=== PATIENT | male | born 1935 | race Caucasian/White ===

== ENCOUNTER 2016-09-11 07:10 | Day surgery (SDC) | payer MEDICARE, BC ==
[2016-09-11] MEDS ORDERED: Lactated Ringers 1,000 ML IV SCH (07:15)
[2016-09-11] MEDS ORDERED: Propofol 200 MG/20 ML SDV IV ONE (08:30)
[2016-09-11] MEDS ORDERED: Midazolam 1 MG/ML 2 ML SDV IV ONE (08:30)
--- NOTE | 2016-09-11 08:58 | PCM.OPNOTE ---
- General Post-Op/Procedure Note Date of Surgery/Procedure: 09/11/16 Operative Procedure(s): c scope Findings: normal colon Pre Op Diagnosis: change in stool caliber Post-Op Diagnosis: normal scope Anesthesia Technique: MAC Primary Surgeon: Caesar Ha Anesthesia Provider: Julia Vo Pathology: none Complications: None Condition: Good Free Text/Narrative:: see dictation
[2016-09-11 10:18] VITALS: BP 135/80
--- NOTE | 2016-09-11 12:37 | OR ---
DATE OF OPERATION: 09/11/2016 SURGEON: Caesar Ha MD PROCEDURE PERFORMED: Colonoscopy. PREOPERATIVE DIAGNOSIS: Change in stool caliber. POSTOPERATIVE DIAGNOSIS: Normal colon. INDICATIONS FOR PROCEDURE: This is a 80-year-old white male who was referred with the above-mentioned complaint of change in stool caliber. He was offered and accepted colonoscopy. DESCRIPTION OF PROCEDURE: After an excellent IV sedation was administered, digital rectal exam was performed. No marked abnormality was noted. The flexible colonoscope was inserted and advanced to the cecum without difficulty. The following findings were noted. The prep was excellent. Ascending colon, unremarkable. Transverse colon, unremarkable. Descending colon, unremarkable. Sigmoid and rectum, unremarkable. Colon was deflated as the scope was removed. The patient tolerated the procedure well. I am going to recommend a high-fiber diet to the patient to see if that does not affect his stool caliber. /[id number] /RIVERAL
== END 2016-09-11 10:05 | disposition home or self-care (01) ==
LOC: FB.SDS 07:10
PROVIDERS: ATTEND Surgery
DX: R19.5 Other fecal abnormalities (principal); I10 Essential (primary) hypertension; F32.9 Major depressive disorder, single episode, unspecified; Z79.899 Other long term (current) drug therapy; Z98.890 Other specified postprocedural states; Z98.52 Vasectomy status; Z87.891 Personal history of nicotine dependence
CPT/HCPCS: 00810; 45378; J2250; J2704; J7120

== ENCOUNTER 2020-07-13 16:12 | Inpatient (IN) | payer MEDICARE, BC ==
[2020-07-13] MEDS ORDERED: Furosemide 40 MG/4 ML VIAL IVPUSH ONE (16:55)
[2020-07-13] MEDS ORDERED: Nitroglycerin 0.4 MG Tab.SL SL PRN (16:56)
[2020-07-13] MEDS ORDERED: Acetaminophen 500 MG Tab PO PRN (16:56)
[2020-07-13] MEDS ORDERED: LORazepam 0.5 MG Tab PO PRN (16:56)
--- NOTE | 2020-07-13 17:07 | PCM.HP.2 ---
H&P History of Present Illness - General Date of Service: 07/13/20 Admit Problem/Dx: Admission Diagnosis/Problem Admission Diagnosis/Problem Hematuria Source of Information: Patient, Provider (Jenny Kirby) History Limitations: Reports: No Limitations - History of Present Illness Initial Comments - Free Text/Narative: Pedro presented to [facility] today for worsening hematuria, urinary retention. He had seen Dr Grant, his PCP on Friday as he had started having dysuria on Friday evening, increased hematuria. He was started on Ciprofloxacin 500 mg bid for 7 days. He had large bloody incontinent urine evening. He states he has urge to urinate, goes to sit down but only a little bit leaks out. He states he has been passing clots of blood. He did have 1 episode of vomiting today after he ate at [employer], stated the cabbage tasted funny, vomited about an hour after he ate, no nausea now. In the clinic, Jenny Kirby, [employer] did CBC which showed Hgb of 6.8. BMP: Na 125, Cl 94, Cr 1.65. Last Hgb was 10.2, last creatinine was 1.04. UA in clinic was too bloody to test for anything else. Blood pressure was 90/40, Pulse 106. Pale. No lightheadedness or dizziness. History of bladder cancer 18 yrs ago, on Lupron, sees Dr Crum every 6 months. He denies any fevers, chills, cough, chest pain. He has shortness of breath but states this is not new. Constipated, no diarrhea. Lower abdominal pain, describes as pressure. No rash. No easily bleeding or bruising. He had his last Covid vaccination on 06/21/2020, no previous history of Covid infection in the last 3 months. Had influenza vaccination 01/2020. - Related Data Allergies/Adverse Reactions: Allergies Allergy/AdvReac Type Severity Reaction Status Date / Time No Known Allergies Allergy Verified 09/11/16 07:22 Home Medications: Home Meds Acetaminophen 1,000 mg PO Q6H PRN 09/10/16 [History] LORazepam [Ativan] 0.5 mg PO BID PRN 09/10/16 [History] Nitroglycerin [Nitrostat] 0.4 mg SL Q5M PRN 09/10/16 [History] Sertraline [Zoloft] 50 mg PO DAILY 09/10/16 [History] Terazosin [Hytrin] 5 mg PO DAILY 09/10/16 [History] Acetaminophen/Diphenhydramine [Tylenol Pm Ex-Strength Caplet] 2 each PO BEDTIME 07/13/20 [History] Aspirin [Halfprin] 81 mg PO DAILY 07/13/20 [History] Ciprofloxacin HCl [Cipro] 500 mg PO BID 07/13/20 [History] Ferrous Sulfate 325 mg PO DAILY 07/13/20 [History] Gabapentin [Neurontin] 300 mg PO TID 07/13/20 [History] Leuprolide Acetate [Lupron Depot] 45 mg SUBCUT ASDIRECTED 07/13/20 [History] Past Medical History Cardiovascular History: Reports: Heart Murmur, High Cholesterol, Hypertension Gastrointestinal History: Reports: Diverticulosis Genitourinary History: Reports: Hydronephrosis, Other (See Below) (bladder stone) Other Genitourinary History: radiation cystitis PLATFORM STAP[employer]ER History: Reports: None Musculoskeletal History: Reports: Back Pain, Chronic Neurological History: Reports: Headaches, Chronic, Other (See Below) Other Neuro History: TMJ (TEMPOROMANDIBULAR JOINT SYNDROME) Psychiatric History: Reports: Depression Hematologic History: Reports: Iron Deficiency Oncologic (Cancer) History: Reports: Bladder, Prostate - Infectious Disease History Infectious Disease History: Reports: Chicken Pox, Measles, Mumps - Past Surgical History HEENT Surgical History: Reports: Adenoidectomy, Tonsillectomy GI Surgical History: Reports: Colonoscopy Male Surgical History: Reports: TURP-Transurethral Resection of Prostate, Ureteral Stent, Vasectomy, Other (See Below) Other Male Surgeries/Procedures: CYSTOSCOPY; URETEROSCOPYW/ STONE MANIPULATION ET RETROGRADE Social & Family History - Caffeine Use Caffeine Use: Reports: Coffee H&P Review of Systems - Review of Systems: Review Of Systems: Comprehensive ROS is negative, except as noted in HPI. Exam - Exam Exam: See Below - Exam General: Alert, Oriented, Cooperative. No: Mild Distress HEENT: PERRLA, Conjunctiva Clear, EOMI, Hearing Intact, Posterior Pharynx Clear, Glasses, Other (Mucosa moist & pale, conjuctival mucosa pale) Neck: Supple, Trachea Midline. No: Lymphadenopathy Lungs: Clear to Auscultation, Normal Respiratory Effort Cardiovascular: Regular Rate, Regular Rhythm, Systolic Murmur (aortic area,) GI/Abdominal Exam: Normal Bowel Sounds, Soft, Distended (suprapubic), Guarding, Tender (suprapubic). No: Rigid, Rebound (Male) Exam: Deferred Rectal (Males) Exam: Deferred Extremities: No Pedal Edema, Slow Capillary Refill, Pallor Peripheral Pulses: 2+: Radial (L), Radial (R) Skin: Warm, Dry, Intact, Other (pallor) Neurological: Cranial Nerves Intact, Normal Speech, Normal Tone Psychiatric: Normal Affect, Normal Mood *Q Meaningful Use (ADM) - VTE *Q VTE Pharmacological Contraindications *Q: Active Hemorrhage VTE Anticoagulation Contraindications: Med/TX Not Indicated/Need - VTE Risk Assess *Q Each Risk Factor Represents 1 Point: None Total Score 1 Point Risk Factors: 0 Each Risk Factor Represents 3 Points: Age 75 Years or Greater Total Score 3 Point Risk Factors: 3 Each Risk Factor Represents 5 Points: None Total Score 5 Point Risk Factors: 0 - Problem List (1) Anemia associated with acute blood loss SNOMED Code(s): 220079001 ICD Code: D62 - ACUTE POSTHEMORRHAGIC ANEMIA Status: Acute Current Visit: Yes Problem Details: Hgb 6.8, blood pressure in clinic 90/40. (2) UTI (urinary tract infection) SNOMED Code(s): 34041271 ICD Code: N39.0 - URINARY TRACT INFECTION, SITE NOT SPECIFIED Status: Acute Current Visit: Yes Qualifiers: Urinary tract infection type: acute cystitis Hematuria presence: with hematuria Qualified Code(s): N30.01 - Acute cystitis with hematuria (3) Hematuria, gross SNOMED Code(s): 546124746 ICD Code: R31.0 - GROSS HEMATURIA Status: Acute Current Visit: Yes (4) Hypotension SNOMED Code(s): 29398371 ICD Code: I95.9 - HYPOTENSION, UNSPECIFIED Status: Acute Current Visit: Yes (5) Acute kidney injury SNOMED Code(s): 36954994, 13805918 ICD Code: N17.9 - ACUTE KIDNEY FAILURE, UNSPECIFIED Status: Acute Current Visit: Yes Problem Details: Cr 1.65, baseline 1.0 (6) Dehydration SNOMED Code(s): 08024074 ICD Code: E86.0 - DEHYDRATION Status: Acute Current Visit: Yes (7) Hyponatremia SNOMED Code(s): 91549376 ICD Code: E87.1 - HYPO-OSMOLALITY AND HYPONATREMIA Status: Acute Current Visit: Yes Problem Details: Na 125 in clinic. (8) Iron deficiency anemia SNOMED Code(s): 66516425 ICD Code: D50.9 - IRON DEFICIENCY ANEMIA, UNSPECIFIED Status: Chronic Current Visit: Yes (9) History of prostate cancer SNOMED Code(s): 014795781 ICD Code: Z85.46 - PERSONAL HISTORY OF MALIGNANT NEOPLASM OF PROSTATE Status: Chronic Current Visit: Yes Onset Date: ~2002 (10) Radiation cystitis SNOMED Code(s): 09446808 ICD Code: N30.40 - IRRADIATION CYSTITIS WITHOUT HEMATURIA Status: Chronic Current Visit: Yes (11) Diverticula of colon SNOMED Code(s): 713934513, 821081137 ICD Code: K57.30 - DVRTCLOS OF LG INT W/O PERFORATION OR ABSCESS W/O BLEEDING Status: Chronic Current Visit: Yes (12) Depression, major, in remission SNOMED Code(s): 50603219 ICD Code: F32.5 - MAJOR DEPRESSIVE DISORDER, SINGLE EPISODE, IN FULL REMISSION Status: Chronic Current Visit: Yes (13) History of bladder stone SNOMED Code(s): 541985058 ICD Code: Z87.448 - PERSONAL HISTORY OF OTHER DISEASES OF URINARY SYSTEM Status: Chronic Current Visit: Yes (14) History of bladder cancer SNOMED Code(s): 640746444, 900061599 ICD Code: Z85.51 - PERSONAL HISTORY OF MALIGNANT NEOPLASM OF BLADDER Statu s: Chronic Current Visit: Yes (15) Chronic bilateral back pain SNOMED Code(s): 573705108 ICD Code: M54.9 - DORSALGIA, UNSPECIFIED; G89.29 - OTHER CHRONIC PAIN Status: Chronic Current Visit: Yes (16) TMJ syndrome SNOMED Code(s): 349243693 ICD Code: M26.629 - ARTHRALGIA OF TEMPOROMANDIBULAR JOINT, UNSPECIFIED SIDE Status: Chronic Current Visit: Yes Problem List Initiated/Reviewed/Updated: Yes Orders Last 24hrs: Active Orders 24 hr Category Date Time Status Patient Status [ADT] Routine ADT 07/13/20 16:48 Ordered Ambulate [RC] PER UNIT ROUTINE Care 07/13/20 16:50 Ordered Height and Weight [RC] UPON Care 07/13/20 16:47 Ordered Insert Urinary Catheter [OM.PC] Q24H Care 07/13/20 17:00 Ordered Oxygen Therapy [RC] PRN Care 07/13/20 16:48 Ordered Up ad Cassandra [RC] ASDIRECTED Care 07/13/20 16:47 Ordered Urinary Catheter Assessment [RC] QSHIFT Care 07/13/20 16:47 Ordered VTE/DVT Education [RC] Per Unit Routine Care 07/13/20 16:48 Ordered Vital Signs [RC] Q4H Care 07/13/20 16:48 Ordered Regular Diet [DIET] Diet 07/13/20 Dinner Ordered BASIC METABOLIC PANEL,BMP [CHEM] Routine Lab 07/14/20 06:00 Ordered CBC WITH AUTO DIFF [HEME] Routine Lab 07/14/20 06:00 Ordered RED BLOOD CELLS LP [BBK] Routine Lab 07/13/20 16:47 Ordered TYPE AND SCREEN [BBK] Routine Lab 07/13/20 16:47 Ordered Acetaminophen [Tylenol Extra Strength] Med 07/13/20 16:56 Ordered 1,000 mg PO Q6H PRN Ciprofloxacin [Ciprofloxacin HCl] Med 07/13/20 21:00 Ordered 500 mg PO BID Ferrous Sulfate Med 07/14/20 09:00 Ordered 325 mg PO DAILY Gabapentin [Neurontin] Med 07/13/20 21:00 Ordered 300 mg PO TID LORazepam [Ativan] Med 07/13/20 16:56 Ordered 0.5 mg PO BID PRN Nitroglycerin [Nitrostat] Med 07/13/20 16:56 Ordered 0.4 mg SL Q5M PRN Sertraline [Zoloft] Med 07/14/20 09:00 Ordered 50 mg PO DAILY Sodium Chloride 0.9% [Normal Saline] 250 ml Med 07/13/20 17:00 Ordered IV ASDIRECTED Sodium Chloride 0.9% [Saline Flush] Med 07/13/20 16:47 Ordered 10 ml FLUSH ASDIRECTED PRN Anticoagulation Contraindications VTE [AST] Per Unit Oth 07/13/20 16:47 Ordered Routine Antiembolic Hose [OM.PC] Per Unit Routine Oth 07/13/20 16:51 Ordered Peripheral IV Insertion Adult [OM.PC] Routine Oth 07/13/20 16:47 Ordered Transfuse Red Blood Cells [COMM] Routine Oth 07/13/20 16:47 Ordered VTE Pharmacological Contraindications [AST] Per Unit Oth 07/13/20 16:47 Ordered Routine Resuscitation Status Routine Resus Stat 07/13/20 16:47 Ordered Medication Orders Acetaminophen (Acetaminophen 500 Mg Tab) 1,000 mg PO Q6H PRN PRN Reason: Pain/Fever Ciprofloxacin (Ciprofloxacin 500 Mg Tab) 500 mg PO BID DENZEL Stop: 07/18/20 21:01 Ferrous Sulfate (Ferrous Sulfate 325 Mg Tab) 325 mg PO DAILY DENZEL Gabapentin (Gabapentin 300 Mg Cap) 300 mg PO TID DENZEL Sodium Chloride (Normal Saline) 250 mls @ 100 mls/hr IV ASDIRECTED DENZEL Sodium Chloride (Sodium Chloride 0.9% 10 Ml Syringe) 10 ml FLUSH ASDIRECTED PRN PRN Reason: Keep Vein Open Assessment/Plan Comment:: 1. Direct admission for gross hematuria, anemia secondary to acute blood loss, hypotension, dehydration. 2. Anemia: Hgb 6.8 in clinic, type & cross 2 units of PRBCs, Lasix 40 mg IV between units. Repeat CBC in am. 3. Hematuria/UTI/acute urinary retention: bladder scan >542 ml, Velázquez insert, 3 way for irrigation, irrigate until urine clear. Continue Ciprofloxacin 500 mg po bid x 5 more days, completed 2 days as outpatient. 4. Hypotension 2/2 to blood loss/dehydration: Hold Terazosin. Transfuse 2 units. If still hypotensive after transfusion complete then would start IVF. 5. Dehydration/hyponatremia: Na 125 in clinic, will transfuse blood first then start IVF, repeat BMP in am. 6. BASILIO: Cr 1.65 in clinic, transfuse & then IVF, repeat BMP in morning. 7. Diet: regular. 8. Activity: as tolerated. 9. DVT prophylaxis: anticoagulation contraindicated, TEDs & ambulation. 10. CODE STATUS: CPR only. Lives in his own home, primary caregiver for his . - Mortality Measure Prognosis:: Good
[2020-07-13] MEDS ORDERED: Polyethylene Glycol 3350 Powder 17 GM Packet PO PRN (17:08)
[2020-07-13] MEDS ORDERED: Lidocaine 2% HCl 6 ML JEL.PF.APP ONE ×2 (17:27→18:14)
[2020-07-13] MEDS: Lidocaine 2% HCl 6 ML JEL.PF.APP MM ONE ×2 (17:34→18:40)
[2020-07-13] MEDS: Sodium Chloride 0.9% 250 ML IV SCH ×2 (19:40→22:35)
[2020-07-13] MEDS ORDERED: Gabapentin 300 MG Cap PO SCH (21:00)
[2020-07-13] MEDS ORDERED: Ciprofloxacin 500 MG Tab PO SCH (21:00)
[2020-07-13] MEDS ORDERED: Acetaminophen/Diphenhydramine 500-25 MG Tab PO SCH (21:00)
[2020-07-13] MEDS: Sodium Chloride 0.9% 10 ML Syringe FLUSH PRN (22:23)
[2020-07-14] MEDS: Sodium Chloride 0.9% 10 ML Syringe FLUSH PRN (01:11)
[2020-07-14 01:20] VITALS: PULSE 88
[2020-07-14] MEDS ORDERED: Lidocaine 2% HCl 6 ML JEL.PF.APP STA ×2 (02:23→03:30)
[2020-07-14] MEDS ORDERED: Lidocaine 2% HCl 6 ML JEL.PF.APP ONE ×2 (02:23→03:30)
--- NOTE | 2020-07-14 04:51 | PCM.SN.2 ---
- Free Text/Narrative Note: Called to bedside as on-call physician for obstruction of spangler. pt had gross hematuria, admitted from clinic in the late afternoon, had a 3-way spangler 20-gauge placed, 1500 ml NS irrigated with return of grossly bloody urine with multiple small clots at about 2a the spangler became obstructed and could not be irrigated, it did seem to kink at the prostate, small spangler introduced with clots plugging the port, changed to a single lumen 20 gauge which appeared to pass the prostate without difficulty, balloon inflated without difficulty, however even with mechanical flushing with a Tate syringe it was possible to introduce NS but not obtain return, blood clots could be seen in the spangler there developed some edema of the scrotum as well as induration deep at the very base of the penis that extended some 10 cm inferiorly from the location of the prostate with a width of 3 cm, suggesting a possible entry of saline/blood into an area of prior hemorrhage/friable of the prostate which may have been the original site of the gross hematuria there is no clinical evidence of a false passage, there does appear to be large clots in the latter that cannot be mechanically broken up bladder scanner showed 550 ml and mainly fluid in bladder with clots at the gravity dependent area on POCUS, an attempt was not made to irrigate the 20 gauge spangler with pt in Trendelenburg which may have allowed the clots to float away from the base of the bladder as it seemed that attempts to irrigate the spangler would temporarily push clot away from the tip only to have it sucked back and obstruct the spangler lumen with negative pressure on the Tate syringe pain was 6/10, tolerable Urojet was used pt denied prior surgery of prostate or bladder, pt denied bladder cancer saying that he had only prostate cancer EHR, however, indicates that prior dx include prostate CA, bladder CA, radiation cystitis, s/p TURP his admission note indicates that he is on Lupron and see his urologist Dr Szymanski every 6m, he has an outpatient appointment with Dr Szymanski in 4-5 days there was no blood at the uretheral meatus and no bypass of saline around the spangler ASSESS: obstruction of Spangler with large clots PLAN: transfer to [facility], accepted by hospitalist Dr Gonzales, I called dtr Lizbeth and informed her of the transfer, Lizbeth said she lives in [place] and would see her father there pt had his 2nd COVID the first week of June and was not tested on admission, he has not sxs of COVID
[2020-07-14 05:27] VITALS: BP 150/62
[2020-07-14] MEDS ORDERED: Sertraline 50 MG Tab PO SCH (09:00)
[2020-07-14] MEDS ORDERED: Ferrous Sulfate 325 MG Tab PO SCH (12:00)
== END 2020-07-14 05:20 | DRG 812 ==
LOC: FB.MS 16:17
PROVIDERS: ADMIT Family Medicine; ATTEND Family Medicine
PROC: 30233N1 Transfusion of Nonautologous Red Blood Cells into Peripheral Vein, Percutaneous Approach (ICD-10-PCS; principal; 2020-07-13)
DX: D62 Acute posthemorrhagic anemia (principal); N30.01 Acute cystitis with hematuria; N17.9 Acute kidney failure, unspecified; N13.30 Unspecified hydronephrosis; E87.1 Hypo-osmolality and hyponatremia; E86.0 Dehydration; T83.091A Other mechanical complication of indwelling urethral catheter, initial encounter; Y83.8 Other surgical procedures as the cause of abnormal reaction of the patient, or of later complication, without mention of misadventure at the time of the procedure; K57.30 Diverticulosis of large intestine without perforation or abscess without bleeding; F32.5 Major depressive disorder, single episode, in full remission; M54.9 Dorsalgia, unspecified; M26.629 Arthralgia of temporomandibular joint, unspecified side; R33.9 Retention of urine, unspecified; N50.89 Other specified disorders of the male genital organs; K59.00 Constipation, unspecified; E78.00 Pure hypercholesterolemia, unspecified; K57.90 Diverticulosis of intestine, part unspecified, without perforation or abscess without bleeding; G89.29 Other chronic pain; F32.9 Major depressive disorder, single episode, unspecified; Z90.89 Acquired absence of other organs; Z85.46 Personal history of malignant neoplasm of prostate; Z87.448 Personal history of other diseases of urinary system; Z85.51 Personal history of malignant neoplasm of bladder
CPT/HCPCS: 36415; 36430; 86850; 86900; 86901; 86920; 86922; A9270-GY; J1940; J7050; P9016